=== PATIENT | male | born 1965 | race Caucasian/White ===

== ENCOUNTER 2023-05-29 19:34 | Emergency (ER) | payer OTHER, SELFPAY ==
[2023-05-29 19:37] VITALS: BP 154/81
[2023-05-29 21:42] VITALS: BP 144/78
[2023-05-29 22:00] VITALS: BP 132/74
[2023-05-29 22:13] LABS: Blood Urea Nitrogen 9 mg/dl (9-20); Calcium 9.8 mg/dl (8.4-10.2); Carbon Dioxide 20 mmol/L (22-30); Chloride 96 mmol/L (98-107); Glucose 117 mg/dl (70-99); Magnesium 1.7 mg/dl (1.6-2.3); Sodium 131 mmol/L (135-145); eGFR > 60.00
[2023-05-29 22:19] LABS: Potassium 4.1 mmol/L (3.5-5.1)
[2023-05-29 22:22] LABS: Troponin I < 0.012 ng/ml
[2023-05-29 23:00] VITALS: BP 133/79
--- NOTE | 2023-05-29 23:12 | ED.GENMED ---
History of Present Illness
General
Chief Complaint: Anxiety
Source: spouse
Exam Limitations: none
Time Seen by Provider: 05/29/23 20:43
Nursing documentation reviewed up to this point in time: agreed with
Travel History
Have you had any contact with someone who has COVID-19?: No
Do you have any symptoms of coronavirus? Fever > 100 degrees, chills, cough, shortness of breath, sore throat, loss of taste or smell, muscle aches, or headache?: No
History of Present Illness
History of Present Illness:
This is a 58-year-old gentleman who has a longstanding history of anxiety, started on BuSpar 5 mg twice daily by his PCP March of this year. He also has history of hypertension, chronic insomnia. He had been maintained on nightly doses of Ambien
but more recently, with insurance change his Ambien allowance has been decreased to 15 tablets/month. With chronic difficulty sleeping he was offered a THC gummy by friends and took 1 at nighttime several days ago without ill effects. He took
another 1 just prior to dinner tonight and while eating dinner patient began to feel quite anxious, panicked with what he described as an 'out of body experience'
He has had similar panic attacks in the past but not for quite some time. Patient felt that his blood pressure was elevated, palpitations and overall shakiness.
He denies dizziness but does admit to intermittent lightheadedness.
Since arrival to the ED he is feeling improved but continues with moderate anxiety, fearful that panic will ensue again.
He denies alcohol use nor other drug use.
No leg pain or swelling. No recent travel.
Recent visit with his PCP with recent unremarkable laboratory studies 2 days ago including normal TSH, normal CBC, normal complete metabolic panel, lipid panel with LDL less than 80.
Past History
Past History
ED Past Medical History: HTN and Psychiatric (Anxiety)
ED Past Surgical History: Other (Hernia repair)
Social History
Tobacco: Non-smoker
Alcohol: None
Drug: None
Personal:
Living: with family
Employment: Employed
Family History
Family History: Other (Noncontributory)
Phy Exam
Physical Exam
Physical Exam:
GENERAL: 58-year-old gentleman appears his stated age, awake and alert, mildly anxious but easily communicative. is accompanying.
EYE: anicteric
NECK: Supple, nontender, no meningismus, no significant adenopathy.
ENT: oral mucosa is minimally dry. No rhinorrhea.
CARDIAC: Regular rate and rhythm. no murmur.
LUNGS: Clear breath sounds bilaterally, no acute respiratory distress, no wheezes/rales/rhonchi
ABDOMEN: Soft, nondistended, without focal tenderness, normoactive BS.
NEUROLOGICAL: Alert and oriented x3, no focal neuro deficits.
SKIN: Warm and dry, normal color, skin intact. No rash.
MUSCULOSKELETAL: No C/C/E. peripheral pulses are full and equal b/l. No palpable tenderness.
PSYCH: Anxious. Cooperative.
Course
Orders/Labs/Results
Orders:
Orders
05/29/23 19:41
Electrocardiogram (*1) Urgent
Reason for Study: Shortness of Breath
EKG- Treatment ONCE
05/29/23 21:04
Encourage PO Hydration-Treatme ONCE
05/29/23 21:43
Basic Metabolic Panel Urgent
Magnesium Urgent
Troponin I Urgent
05/29/23 23:11
Acetaminophen [Tylenol] 1,000 mg PO NOW STA
05/29/23 23:20
Alprazolam [Xanax] 0.5 mg PO NOW STA
Abnormal Lab Results
05/29/23
21:43
Sodium 131 L mmol/L
(135-145)
Chloride 96 L mmol/L
(98-107)
Carbon Dioxide 20 L mmol/L
(22-30)
Glucose 117 H mg/dl
(70-99)
05/29/23 21:43
Vital Signs
Initial and Last Documented VS:
Initial Vital Signs
Pulse Resp BP Pulse Ox
103 18 154/81 100
05/29/23 19:37 05/29/23 19:37 05/29/23 19:37 05/29/23 19:37
Last Documented Vital Signs
Pulse Resp BP Pulse Ox
73 18 132/74 95
05/29/23 22:30 05/29/23 19:37 05/29/23 22:00 05/29/23 22:30
MDM/Problems Addressed
Differential Diagnosis Includes:
I highly suspect anxiety/panic, adverse reaction to THC containing edible.
Other consideration is electrolyte abnormality, arrhythmia, less likely ACS.
Initial EKG shows sinus tachycardia, chronically flipped T waves inferiorly compared to previous.
Upon initial evaluation mild sinus tachycardia has resolved. Monitor shows normal sinus rhythm in the 70s.
Initial mild systolic hypertension at 154 has normalized.
Will continue monitoring tech.
Will check electrolytes, troponin.
Normal TSH just 3 days ago, no indication to repeat.
Will encourage oral fluids and continue to observe.
Chronic conditions affecting care: HTN and Psychiatric illness (Generalized anxiety disorder)
Acute Exacerbation and/or Progression of Chronic Illness: Psychiatric illness (Anxiety disorder with panic attack)
*Pulse Oximetry
Patient hypoxic: no
*EKG
Interpreted by ED Provider?: Yes
Comparison EKG: no changes (Unchanged from previous December 2017 )
Rate: tachycardiac
Rhythm: sinus
[place]: normal axis
Interval: normal interval
QRS Pattern: normal QRS
Ischemia: non-specific ST changes
*Meat Department Manager Interpretation
Rate: normal
Interpretation: normal
Rhythm: sinus
*Critical Care Note
Total Time (30-74mins, 75-104mins- exclusive of procedures): Not Applicable
Update Note
Update Note:
05/29/2023 2321 PM
Patient feeling markedly improved, no further tremulousness, no tachycardia. Vital signs are stable and monitoring tech shows normal sinus rhythm in the 60s to 70s.
He complains of mild frontal headache and continues with some worry that panic, anxiety will resume.
Labs show very mild hyponatremia, minimal metabolic acidosis which may be secondary to respiratory alkalosis.
Will give Tylenol for headache and one-time dose of alprazolam and will continue to observe.
Patient has been recommended to avoid any further THC containing products as I suspect this was cause for anxiety and panic.
05/30/2023 0036 AM
Patient resting comfortably, feeling improved and is eager to be discharged to home.
Instructions as above; avoid any and all further THC containing products.
Prompt follow-up with PCP for recheck.
ED Attending Note
-
Portions of this chart may have been created with voice recognition software.� Occasional wrong word or��sound alike� substitutions may have occurred due to the inherent limitations of voice recognition software.
Discharge Plan
Departure
Patient Disposition: Home (Routine Discharge)
Date of Disposition: 05/30/23
Time of Disposition: 00:30
Patient with high blood pressure during this ER visit?: No
Condition: Good
Discharge Problem:
Adverse reaction to THC edible, acute anxiety due to THC consumption
Instructions: Anxiety, Adult (DC), Panic Attack ED
Prescriptions:
No Action
nifedipine 30 MG tablet extended release 24hr
30 mg PO DAILY
lisinopril 20 MG tablet
20 mg PO DAILY
alprazolam 0.25 MG tablet
0.25 mg PO Q8HPRN PRN (Reason: anxiety)
zolpidem 10 MG tablet
10 mg PO HSPRN PRN (Reason: sleep)
hydrocodone-acetaminophen 1 EACH tablet
1 ea PO Q4 PRN (Reason: back pain)
Referrals:
Benja Chanel, DO [Family Provider] - Call in 1-3 days for appt
Activity Restrictions/Additional Instructions:
I suspect your anxiety/panic attack tonight was due to marijuana edible.
As such, recommend you avoid any and all THC containing products.
Continue all of your regular medications and follow-up with your primary care physician for recheck.
Interventions
Interventions:
*Risk Screen - Suicide Last Done: 05/29/23 21:46
*General Assessment Last Done: 05/29/23 19:37
*Neglect/Abuse Screening Last Done: 05/29/23 21:46
ED- Fall Risk Assessment Last Done: 05/29/23 21:46
*ED COVID-19 Vaccine History Last Done: 05/29/23 19:37
ED-Psychological Assessment Last Done: 05/29/23 21:46
Discharge Date and Time
Print Language: SLOVAK
[2023-05-29] MEDS: TYLENOL 1000 MG PO (23:23)
[2023-05-29] MEDS: XANAX 0.5 MG PO (23:23)
[2023-05-30] VITALS: BP 127/78
== END 2023-05-30 00:52 | disposition home or self-care (01) ==
LOC: EMR 19:34
PROVIDERS: EMERGENCY PHYSICIAN Emergency Medicine; FAMILY PHYSICIAN Internal Medicine
DX: F06.4 Anxiety disorder due to known physiological condition (principal); T40.715A Adverse effect of cannabis, initial encounter; F41.0 Panic disorder [episodic paroxysmal anxiety]; G47.9 Sleep disorder, unspecified; I10 Essential (primary) hypertension; F51.04 Psychophysiologic insomnia; E87.1 Hypo-osmolality and hyponatremia; E87.20 Acidosis, unspecified
CPT/HCPCS: 99283; 80048; 83735; 84484; 93005

== ENCOUNTER 2023-08-04 00:18 | Inpatient (IN) | payer BC, SELFPAY ==
[2023-08-03 20:49] VITALS: BP 210/122
[2023-08-03 21:26] VITALS: BP 163/107
[2023-08-03 21:29] LABS: ALT (SGPT) 93 U/L (0-50); AST (SGOT) 93 U/L (17-59); Albumin 4.9 g/dl (3.5-5.0); Alkaline Phosphatase 105 U/L (38-126); Blood Urea Nitrogen 10 mg/dl (9-20); Carbon Dioxide 18 mmol/L (22-30); Chloride 86 mmol/L (98-107); Glucose 114 mg/dl (70-99); Potassium 3.8 mmol/L (3.5-5.1); Sodium 119 mmol/L (135-145); Total Bilirubin 0.9 mg/dl (0.2-1.3); Total Protein 7.5 g/dl (6.3-8.2); eGFR > 60.00
--- NOTE | 2023-08-03 21:32 | ED.GENMED ---
History of Present Illness
General
Chief Complaint: Blood Pressure Problem
Source: patient
Exam Limitations: none
Time Seen by Provider: 08/03/23 21:17
Travel History
Have you had any contact with someone who has COVID-19?: No
Do you have any symptoms of coronavirus? Fever > 100 degrees, chills, cough, shortness of breath, sore throat, loss of taste or smell, muscle aches, or headache?: No
History of Present Illness
History of Present Illness:
This is a 58 year old male that comes in with c/o hypertension. States that his BP was fine the last time he was at the PCP. States that tonight he can tell when his BP is elevated and at 7:30pm it was 200 over something. State that this causes his
anxiety to go up. States that he was told that if his BP ever gets that high to come to the ER.. States that he was slightly SOB and had some diarrhea for the past couple of days. . Denies any fever, chills, chest pain, abd pain, nausea, vomiting,
headache, dizziness, urinary burning.
Past History
Past History
ED Past Medical History: HTN, Psychiatric (Anxiety) and Other (TIA, Headaches, Numbness in arms and legs. Meningitis, )
ED Past Surgical History: Orthopedic (Right finger repair) and Other (Hernia repair X 2, Pituitary resection)
Social History
Tobacco: Non-smoker
Alcohol: Occasional
Drug: None
Personal:
Living: with family
Employment: Employed
Family History
Family History: Other (Noncontributory)
Review of Systems
Review of Systems
All Other Systems: ROS reviewed and negative except as documented in HPI and ROS
Constitutional: Reports no symptoms; Denies fever or chills
EENT: Reports no symptoms
Respiratory: Reports trouble breathing; Denies cough
Cardiac: Reports no symptoms; Denies chest pain
ABD/GI: Reports diarrhea; Denies abdominal pain, nausea or vomiting
: Reports no symptoms; Denies dysuria, frequency or urgency
Musculoskeletal: Reports no symptoms
Skin: Reports no symptoms
Neurological: Reports no symptoms; Denies dizzy or headache
Psychiatric: Reports no symptoms
Phy Exam
General Physical Exam
General Presentation: well appearing
General age: appears stated age
General Skin: warm and dry
General Habitus: normal
General Mental: anxious
General Hydration: appears well hydrated
ENT Exam
ENT Exam: TM's normal, pharynx normal and neck supple
Eye Exam
Eye Exam: EOMI
Cardiovascular Exam
Cardiovascular Exam: regular rate/rhythm, no edema, no murmur and normal peripheral pulses
Pulmonary Exam
Pulmonary Exam: lungs clear, no respiratory distress, no rales, chest non tender, no crackles, no rhonchi, no wheezing and no cough
Gastrointestinal Exam
Gastrointestinal Exam: normal bowel sounds, non tender, soft, no organomegaly, no pulsatile mass and non distended
Musculoskeletal Exam
Musculoskeletal Exam: full ROM and no edema
Skin Exam
Skin Exam: normal color, warm/dry, no rash and no petechia
Psychiatric Exam
Psychiatric Exam: normal mood/affect
Course
Orders/Labs/Results
Orders:
Orders
08/03/23 20:54
EKG [Electrocardiogram (*1)] Urgent
Reason for Study: Shortness of Breath
EKG- Treatment ONCE
08/03/23 21:03
CBC/With Diff [Complete Blood Count/With Diff] Urgent
CMP [Comprehensive Metabolic Panel] Urgent
Troponin I Urgent
08/03/23 21:31
Alprazolam [Xanax] 0.25 mg PO NOW STA
08/03/23 21:35
Osmolality, Random Urine Urgent
Serum Osmolality Urgent
08/03/23 21:38
0.9% Sodium Chloride 1000 ml [Nss] 1,000 ml IV BOLUS
Abnormal Lab Results
08/03/23
21:03
MCH 31.1 H pg
(27.0-31.0)
Absolute Monos (auto) 0.8 H 10^3/uL
(0.1-0.6)
Monocytes % 11.1 H %
(1.7-9.3)
Sodium 119 L* mmol/L
(135-145)
Chloride 86 L mmol/L
(98-107)
Carbon Dioxide 18 L mmol/L
(22-30)
Glucose 114 H mg/dl
(70-99)
AST 93 H U/L
(17-59)
ALT 93 H U/L
(0-50)
08/03/23 21:03
08/03/23 21:03
Hyponatremia. Chloride low, carbon dioxide slightly low. Glucose nonfasting. AST/ALT elevation.
Vital Signs
Initial and Last Documented VS:
Initial Vital Signs
Temp Pulse Resp BP Pulse Ox
98.1 F 126 25 210/122 100
08/03/23 20:49 08/03/23 20:49 08/03/23 20:49 08/03/23 20:49 08/03/23 20:49
Last Documented Vital Signs
Temp Pulse Resp BP Pulse Ox
98.1 F 89 16 158/109 97
08/03/23 20:49 08/03/23 21:45 08/03/23 21:45 08/03/23 21:36 08/03/23 21:45
MDM/Problems Addressed
Differential Diagnosis Includes:
Hypertension, Anxiety, Hyponatremia
MDM/Problems Addressed:
This is a 58 year old male that comes in with c/o hypertension. States that he feels when his BP is elevated and this his anxiety goes up. States that he was told that when his BP goes that high that he needs to come to the ER.
Will check labs and medicate as needed.
Back into see patient. Explained that he would be admitted as his Sodium is very low. Explained that this can happen with to much water intake. Patient states that he has also had diarrhea for a few days. Will admit. Hospitalist notified
Chronic conditions affecting care: HTN
Acute Exacerbation and/or Progression of Chronic Illness: HTN
*Pulse Oximetry
Patient hypoxic: no
*EKG
Interpreted by ED Provider?: Yes
Heart Rate: 109
Rate: tachycardiac
Rhythm: sinus tachycardia
[place]: normal axis
Interval: normal interval
QRS Pattern: normal QRS
Ischemia: non-specific ST changes
*Gunnery/Ordnance Officer Interpretation
Rate: normal
Heart Rate: 82
Rhythm: sinus
*Critical Care Note
Total Time (30-74mins, 75-104mins- exclusive of procedures): Not Applicable
ED Attending Note
-
Portions of this chart may have been created with voice recognition software.� Occasional wrong word or��sound alike� substitutions may have occurred due to the inherent limitations of voice recognition software.
Discharge Plan
Departure
Patient Disposition: Admit
Date of Disposition: 08/03/23
Time of Disposition: 22:08
Admit to: Telemetry
Presentation/result/management discussed w/ accepting MD/DO: Hospitalist
Patient with high blood pressure during this ER visit?: Yes
Condition: Good
Covid-19: Not Applicable
Discharge Problem:
Acute hyponatremia
Prescriptions:
No Action
nifedipine 30 MG tablet extended release 24hr
30 mg PO DAILY
lisinopril 20 MG tablet
20 mg PO DAILY
alprazolam 0.25 MG tablet
0.25 mg PO Q8HPRN PRN (Reason: anxiety)
zolpidem 10 MG tablet
10 mg PO HSPRN PRN (Reason: sleep)
hydrocodone-acetaminophen 1 EACH tablet
1 ea PO Q4 PRN (Reason: back pain)
Referrals:
Benja Chanel, DO [Family Provider] -
Interventions
Interventions:
*Risk Screen - Suicide Last Done: 08/03/23 21:51
*General Assessment Last Done: 08/03/23 21:51
*Neglect/Abuse Screening Last Done: 08/03/23 21:51
ED- Cardiac Assessment Last Done: 08/03/23 21:51
ED- Neurological Assessment Last Done: 08/03/23 21:51
ED- Pulmonary Assessment Last Done: 08/03/23 21:51
Discharge Date and Time
Print Language: MAORI
[2023-08-03 21:36] VITALS: BP 158/109
[2023-08-03 21:36] LABS: Troponin I < 0.012 ng/ml
[2023-08-03 21:38] VITALS: BMI 32.9
[2023-08-03] MEDS: XANAX 0.25 MG PO (21:43)
[2023-08-03] MEDS: NSS 1000 IV (21:43)
[2023-08-03 22:00] VITALS: BP 148/98
[2023-08-03 22:03] LABS: % Basophils 0.6 % (0-2); % Eosinophils 1.3 % (0-6); % Immature Granulocytes 0.4 % (0-0.5); % Lymphocytes 35.3 % (20.5-51.1); % Monocytes 11.1 % (1.7-9.3); % Neutrophils 51.3 % (42.2-75.2); Absolute Eosinophils 0.1 10^3/uL (0-0.7); Absolute Lymphocytes 2.5 10^3/uL (1.2-3.4); Absolute Monocytes 0.8 10^3/uL (0.1-0.6); Absolute Neutrophils 3.7 10^3/uL (1.4-6.5); Hematocrit 42.1 % (39.0-52.0); Hemoglobin 15.2 g/dL (13.0-18.0); Mean Corp Hgb Conc. 36.1 g/dL (33.0-37.0); Mean Corpuscular Hgb 31.1 pg (27.0-31.0); Mean Corpuscular Volume 86.3 fL (80.0-94.0); Nucleated Red Blood Cells % 0 % (-); Platelet Count 195 10^3/uL (130-400); Red Blood Cell Count 4.88 10^6/uL (4.70-6.10); White Blood Cell Count 7.1 10^3/uL (4.8-10.8)
[2023-08-03 22:30] VITALS: BP 147/97
[2023-08-03 22:31] LABS: Osmolality Serum 257 mOsm/kg (275-300)
[2023-08-03 22:33] LABS: Osmolality Urine 91 mOsm/kg (300-900)
[2023-08-04] VITALS (15 sets, daily range): BP systolic 130–154; BP diastolic 84–103; PULSE 61–80; BMI 31.4
--- NOTE | 2023-08-04 00:23 | HPS.HSE ---
Family Physician
-
Family Physician: Benja Chanel
Chief Complaint
-
Dizziness, Fatigue, Headache
History of Present Illness
Patient is a 58y M with PMH significant for pituitary adenoma and hypertension who presents to ED complaining of concerns regarding high blood pressure. Patient states that he has felt 'off' for the past week or so. He reports symptoms
including headache, fatigue, lightheadedness and general 'woozy' sensation. He began to become concerned that his symptoms were due to high blood pressure. He checked his BP today which was 150s systolic - which he notes is elevated from his
usual. he continued to check his BP 'every 30 minutes' throughout the day and it continued to increase up to systolic values in the 200s.
Patient presented to the ED for further evaluation.
Here in the ED his BP has gradually decreased from systolic of 200s to 140s without specific intervention.
Patient reports that he has been having loose stools / diarrhea off-and-on for the past few weeks. This has been fairly consistent for the past 7 days. He notes that his appetite has been poor.
He reports that he drinks about 4-5 liters of water per day - but states that this is his typical intake and has not recently changed.
He had labs done for a physical exam with his PCP in April. He has these on his phone and his Na at that time was 138 (05/27/23).
He denies any recent changes in medications - but notes that he started taking 'liver health pills' including a combination supplement as well as separate N-acetylcysteine.
Patient is admitted an very anxious individual.
He notes prior history of hyponatremia that occurred post-op following his pituitary adenoma surgery. This was in 2004. He has MRI examinations every 2 years in follow-up and his last was in 2022.
Medical History
Past Medical History
Past Medical History: Reports Other
Additional Past Medical History:
Pituitary Adenoma
Hypertension
Anxiety
Obesity
Past Surgical History: Reports Other
Additional Past Surgical History:
Pituitary Adenoma Resection
Hernia Repair x 2
Right Hand Surgery
Social History
Tobacco: Non-smoker
Alcohol: Occasional
Drug: None
Family History
Family History: Hypertension
Allergies / Home Medications
Allergies reflects when Allergies were last updated in [facility].
Home Medications with original date entered in [facility]
Allergy/Medication List:
Allergies
Allergy/AdvReac Type Severity Reaction Status Date / Time
ondansetron Allergy Unknown Verified 08/03/23 20:53
prochlorperazine Allergy Unknown Verified 08/03/23 20:53
NOT.[id number] - Not Allergy Unknown Uncoded 08/03/23 20:53
Converted 42. See Text.
Home Medications
alprazolam 0.25 mg tablet 0.25 mg PO BIDPRN PRN anxiety 01/06/18
lisinopril 20 mg tablet 20 mg PO BID 01/06/18
nifedipine 30 mg tablet,extended release 24 hr 30 mg PO QPM 01/06/18
zolpidem 10 mg tablet 10 mg PO HSPRN PRN sleep 01/06/18
buspirone 5 mg tablet 5 mg PO BID 08/03/23
hydrocodone 5 mg-acetaminophen 325 mg tablet 1 tab PO BIDPRN PRN moderate pain 08/03/23
Review of Systems
-
History Source: Patient
A 12 point ROS was completed and negative except as noted: Yes
Constitutional: Reports Fatigue; Denies Fever or Chills
EENT: Denies Sore Throat
Respiratory: Denies Cough or Trouble Breathing
Cardiac: Denies Chest Pain or Palpitations
Abdomen/GI: Reports Diarrhea and Anorexia; Denies Abdominal Pain, Nausea, Vomiting, Bloody Stools or Black Stools
: Reports Frequency; Denies Dysuria
Musculoskeletal: Denies Joint Pain or Edema
Neurological: Reports Dizzy and Headache
Psych: Reports Anxiety; Denies Depression
Physical Exam
Vital Signs
Vital Signs
Temp Pulse Resp BP Pulse Ox
98.1 F 80 13 147/97 96
08/03/23 20:49 08/03/23 22:45 08/03/23 22:45 08/03/23 22:30 08/03/23 22:45
Physical Exam
General: Other (58y M in no acute distress. Anxious affect.)
HEENT: Moist mucous membranes and PERRLA
Respiratory: Clear; No Wheezes, Rales or Rhonchi
Cardiac: S1/S2, Regular Rhythm and Murmur (II/ REG)
GI: Soft, Non Tender, Non Distended and Normal Bowel Sounds
Musculoskeletal: No Clubbing, No Cyanosis and No Edema
Neuro: AO x 3 and Nonfocal/grossly intact
Psych: Anxious
Laboratory Results
-
08/03/23 21:03
08/03/23 21:03
Laboratory Results
Total Bilirubin 0.9 mg/dl (0.2-1.3) 08/03/23 21:03
AST 93 U/L (17-59) H 08/03/23 21:03
ALT 93 U/L (0-50) H 08/03/23 21:03
Alkaline Phosphatase 105 U/L (38-126) 08/03/23 21:03
Troponin I < 0.012 ng/ml 08/03/23 21:03
Impression/Plan
-
A/P: Patient is a 58y M with PMH significant for hypertension, anxiety and pituitary adenoma s/p resection who presents to ED concerned about his BP.
Symptomatic Hyponatremia
- Admit for further evaluation and treatment.
- Patient presents with Na level = 119 and suspect that this is the etiology of his vague symptomatology.
- Suspect that this is due to free water intake, poor appetite and recent GI losses / diarrhea.
- 3% saline overnight to get Na level > 120.
- Fluid restriction.
- Follow for improvement in Na levels.
- Nephrology evaluation for additional recommendations.
- Check TFTs, cortisol and MR brain given his history of pituitary adenoma (patient notes that resection was incomplete).
- Follow for any new / worsening symptoms.
Benign Hypertension
- BP elevation was very likely secondary to anxiety brought on by his symptoms due to the above.
- BP improved without intervention and patient admittedly quite anxious.
- Continue usual home BP meds for now and follow for changes.
- Correct Na issues. Treat anxiety as noted below.
Generalized Anxiety
- Sounds as if this is chronically poorly controlled.
- Patient takes buspirone and PRN alprazolam.
- States that he will require Ativan for MRI and this was ordered.
- Continue PRN meds for now. Would consider trial of Lexapro , Zoloft or similar - after Na issues are resolved.
DVT Prophylaxis: SCDs
Code Status: Full
[2023-08-04] MEDS: SODIUM CHLORIDE 3% 250 IV (01:06)
[2023-08-04] MEDS: TYLENOL 650 MG PO (02:48)
[2023-08-04] MEDS: XANAX 0.25 MG PO (03:25)
[2023-08-04 03:59] LABS: Hematocrit 40.4 % (39.0-52.0); Mean Corp Hgb Conc. 37.1 g/dL (33.0-37.0); Mean Corpuscular Hgb 31.2 pg (27.0-31.0); Platelet Count 203 10^3/uL (130-400); Red Blood Cell Count 4.81 10^6/uL (4.70-6.10); Red Cell Dist. Width 12.1 % (11.5-14.5)
--- NOTE | 2023-08-04 04:02 | PTCARENOTE ---
Received pt from ED RN. Pt is AAOx3, neuro checks Q4, anxious (PRN Xanax given, see MAR). NSR w/ 1st degree, orthos ordered BID. Pt on RA O2 sat 93%, lungs clear. BRPx1. Tylenol given for a LY (see MAR). Pt is laying in bed with call mejia in reach.
[2023-08-04 04:18] LABS: Blood Urea Nitrogen 10 mg/dl (9-20); Calcium 9.8 mg/dl (8.4-10.2); Carbon Dioxide 22 mmol/L (22-30); Chloride 98 mmol/L (98-107); Estimated Creatinine Clearance 118 ml/min; Glucose 91 mg/dl (70-99); Potassium 4.8 mmol/L (3.5-5.1); Sodium 131 mmol/L (135-145); eGFR > 60.00
[2023-08-04 04:44] LABS: TSH Reflex To Free T4 2.08 uIU/ml (0.47-4.68)
[2023-08-04 04:45] LABS: Cortisol, Random 9.5 ug/dl
--- NOTE | 2023-08-04 06:19 | PTCARENOTE ---
Pt Na on admission was 119, he was placed on a 3% saline gtt in the ED. AM Na was 131, AMAURI Saldivar notified and instructed to hold 3%. Dr. Avery notified.
[2023-08-04] MEDS: D5W 1000 IV ×2 (08:15→19:53)
[2023-08-04] MEDS: BUSPAR 5 MG PO ×2 (08:18→19:53)
[2023-08-04] MEDS: ZESTRIL 20 MG PO ×2 (08:18→19:53)
--- NOTE | 2023-08-04 08:18 | W.PN.HOSP.TC ---
Today's Communication/Plan
-
Repeat BMP
hepatitis panel and USS
Await MRI
FR
Assessment / Plan
Assessment / Plan
58-year-old male with dizziness, fatigue and headache. Patient checked his blood pressure at home was elevated. In the ER his blood pressure gradually dropped without intervention.. Patient also reported that he was drinking 4 to 5 L of water a
day. Reportedly sodium was 138 on may 27 2023.He notes prior history of hyponatremia that occurred post-op following his pituitary adenoma surgery. This was in 2004. He has MRI examinations every 2 years in follow-up and his last was in 2022.
He also admitted to having lower/diarrhea off-and-on for the past few weeks.
CVS: S1-S2 normal
Chest: CTA B/L
Abdomen: Soft, NT / Bowel sounds present
Extremities: No edema, normal pulses
SIDE PULLER: Non focal exam
# Symptomatic hyponatremia
Sodium was 119 on admission. Serum osmolality 257
Likely secondary to excess free water intake and GI losses, also SIADH physiology
Received 3% saline after which her sodium corrected quickly. D5W started
Fluid restriction
Nephrology evaluation
Check TSH, cortisol- OK
MRI of the brain with and without contrast with a history of pituitary adenoma
#Loose stools- says after he ate out?
If has more send testing.
# Metabolic acidosis-resolved
# Elevated AST and ALT
Check Hepatitis panel
Check USS
# Hypertension
Continue lisinopril 10 mg p.o. twice daily, nifedipine 30 mg at night
Likely urgency in the ER secondary to his extreme anxiety
# Generalized anxiety disorder
Continue Xanax twice daily as needed, BuSpar 5 twice daily
# Obesity per BMI criteria
# Insomnia-on Ambien 10 mg at bedtime
# History of pituitary adenoma resection patient gets periodic imaging
Last one at [place] - was OK per pt in December.
# DVT prophylaxis-Lovenox
# Full code
D/ W RN
D/W Nephrology
EKG and Images reviewed by me
Time spent 52 min
Anticipated Discharge: Within 24 hours
Subjective/Interval History
-
Date of Service: August 04, 2023
Objective Data
-
Labs:
Laboratory Results
08/03/23 08/04/23 08/04/23
21:03 03:30 10:00
WBC 7.1 6.0
Hgb 15.2 15.0
Hct 42.1 40.4
Plt Count 195 203
Sodium 119 L* 131 L D Pending
Potassium 3.8 4.8 D Pending
Chloride 86 L 98 Pending
Carbon Dioxide 18 L 22 Pending
BUN 10 10 Pending
Creatinine 0.9 0.8 Pending
Glucose 114 H 91 Pending
Calcium 10.0 9.8 Pending
Total Bilirubin 0.9
AST 93 H
ALT 93 H
Alkaline Phosphatase 105
Vital Signs:
Vital Signs
Temp Pulse Resp BP Pulse Ox
98.5 F 59 22 139/93 95
08/04/23 02:34 08/04/23 06:00 08/04/23 06:00 08/04/23 06:00 08/04/23 06:00
I&O
08/03/23 08/04/23 08/05/23
06:59 06:59 06:59
Intake Total 410 / 410
Balance 410 / 410
[2023-08-04] MEDS: ATIVAN 0.5 MG PO (09:02)
--- NOTE | 2023-08-04 09:20 | PTCARENOTE ---
Pt AAOx3 very anxious as pt daughter graduates from high school on Wednesday. pt wants to go home. Pt for nephrology consult and MRI
[2023-08-04] MEDS: ATIVAN 0.5 MG IV (09:30)
--- NOTE | 2023-08-04 09:37 | PTCARENOTE ---
Pt pre medicated with 0.5 po Ativan and 0.5 IV Ativan for MRI , Transport here to transport to MRI
[2023-08-04 11:50] LABS: ALT (SGPT) 102 U/L (0-50); AST (SGOT) 87 U/L (17-59); Albumin 4.8 g/dl (3.5-5.0); Alkaline Phosphatase 81 U/L (38-126); Direct Bilirubin 0.5 mg/dl (0.0-0.4); Total Protein 7.4 g/dl (6.3-8.2)
--- NOTE | 2023-08-04 11:54 | PTCARENOTE ---
Pt back from MRI awaiting lab results and DR Gonzalez
[2023-08-04] MEDS: ATIVAN IV (11:58)
[2023-08-04] MEDS: NSS (PRESERVATIVE FREE) 0.25 ML IV (11:59)
[2023-08-04] MEDS: FLUSH (NSS) 1 FLUSH IV (11:59)
[2023-08-04 13:00] LABS: Blood Urea Nitrogen 11 mg/dl (9-20); Calcium 9.8 mg/dl (8.4-10.2); Carbon Dioxide 23 mmol/L (22-30); Chloride 97 mmol/L (98-107); Estimated Creatinine Clearance 118 ml/min; Glucose 98 mg/dl (70-99); Potassium 4.5 mmol/L (3.5-5.1); Sodium 131 mmol/L (135-145); eGFR > 60.00
--- NOTE | 2023-08-04 15:02 | W.CON.NEPH ---
Consultation
-
Date/Time Consultation Requested: August 04, 2023 9 AM
Date/Time Consultation Performed: August 04, 2023 12 PM
Requesting Provider: Dr. Valerio
Performing Provider: Dr. Lawler
Reason for Consultation: Hyponatremia
Medical History
-
Chief Complaint: Lightheadedness
History of Present Illness:
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 He also has hypertension on a multidrug regimen which has been well-controlled by his report running in the 130 systolic
range typically. He says that he does drink a lot of fluid per day at least 4 L sometimes more. In the last week he has been drinking more fluid as he has been more active and has been quite hot. He says that he went on a hike with his son and
help this to moving to college and then also went on a 13 mile bike ride in the last several days. With this he has been taking in at least 5 L of fluid per day. He says that he has also been preparing for a graduation alliance party this Wednesday for 40
people and the stress has likely resulted in him eating less over the last week as well. Beginning since Wednesday at least, he has been having some wooziness and lightheadedness. He felt that this was due to his blood pressures which seem to been
higher than usual though he attributed this to stress. The feeling however did not improve which is why he came to the emergency room. At the time of admission he was noted to have a sodium level of 119.
Past Medical History
Pituitary adenoma
Hypertension
Anxiety
Hernia repair
Right hand surgery
Partial pituitary adenoma resection
Social History
Tobacco: Non-Smoker
Alcohol: Occasional
Family History
Family History: Not Pertinent
Allergies / Home Medications
Allergy/AdvReac Type Severity Reaction Status Date / Time
ondansetron Allergy Unknown Verified 08/03/23 20:53
prochlorperazine Allergy Unknown Verified 08/03/23 20:53
�Medication �Instructions �Recorded �Confirmed �Type
alprazolam 0.25 mg tablet 0.25 mg PO BIDPRN PRN anxiety 01/06/18 08/03/23 History
lisinopril 20 mg tablet 20 mg PO BID 01/06/18 08/03/23 History
nifedipine 30 mg tablet,extended 30 mg PO QPM 01/06/18 08/03/23 History
release 24 hr
zolpidem 10 mg tablet 10 mg PO HSPRN PRN sleep 01/06/18 08/03/23 History
buspirone 5 mg tablet 5 mg PO BID 08/03/23 08/03/23 History
hydrocodone 5 mg-acetaminophen 325 1 tab PO BIDPRN PRN moderate pain 08/03/23 08/03/23 History
mg tablet
Review of Systems
-
No chest pain or shortness of breath. Lightheadedness has improved. No issues with urine output.
All other systems: Negative unless noted
Physical Exam
Vital Signs
Vital Signs
Temp Pulse Resp BP Pulse Ox
98.3 F 75 14 140/113 91
08/04/23 11:55 08/04/23 08:18 08/04/23 08:17 08/04/23 08:18 08/04/23 08:17
Lab Results
WBC 6.0 10^3/uL (4.8-10.8) 08/04/23 03:30
RBC 4.81 10^6/uL (4.70-6.10) 08/04/23 03:30
Hgb 15.0 g/dL (13.0-18.0) 08/04/23 03:30
Hct 40.4 % (39.0-52.0) 08/04/23 03:30
Plt Count 203 10^3/uL (130-400) 08/04/23 03:30
Sodium 131 mmol/L (135-145) L 08/04/23 11:55
Potassium 4.5 mmol/L (3.5-5.1) 08/04/23 11:55
Chloride 97 mmol/L (98-107) L 08/04/23 11:55
Carbon Dioxide 23 mmol/L (22-30) 08/04/23 11:55
BUN 11 mg/dl (9-20) 08/04/23 11:55
Creatinine 0.8 mg/dL (0.7-1.3) 08/04/23 11:
eGFR > 60.00 08/04/23 11:55
Glucose 98 mg/dl (70-99) 08/04/23 11:
Calcium 9.8 mg/dl (8.4-10.2) 08/04/23 11:
Albumin 4.8 g/dl (3.5-5.0) 08/04/23 03:30
Physical Exam
Patient is awake alert oriented and in no distress. Mood and affect were pleasant, insight and judgment were good. Pupils are equal round and reactive to light, extraocular movements are intact, sclera were anicteric. Hearing was normal, ears and
nose are intact. Oropharynx was clear. Neck was supple with trachea midline and no thyromegaly. Heart was regular rate and rhythm without rubs. Lower extremities without edema. Lungs were clear to auscultation bilaterally and with normal
excursion. Abdomen was soft, nontender, with normal active bowel sounds, and no hepatosplenomegaly. Skin was without rash and with normal turgor.
Data Reviewed
-
MRI: Report Reviewed by me (Brain MRI on August 04, 2023 shows deformity of the pituitary gland and infundibulum)
Medical Tests (Nuc Med, Echo etc): Image Personally Visualized and interpreted (EKG on August 04, 2023 by my reading shows normal sinus rhythm first-degree AV block)
Labs: Labs Reviewed by me (Hemoglobin 15.0, platelets 203, WBC 6.0, sodium 119, potassium 3.8, creatinine 0.9, AST 87, ALT 102)
Old Records: Reviewed (Sodium level on May 27, 2023 was 138)
Assessment/Plan
-
Assessment:
Hyponatremia, symptomatic
Hypertension
Pituitary adenoma, partial resection
Elevated LFTs
Plan:
Follow serial BMP
Follow LFTs
Continue D5W IV fluids for now
Urine osmolality of 91 suggests that this was a polyuric combined with low solute state. He will likely correct by himself.
We will continue IV fluids for the time being pending later sodium levels today.
So long as his sodium level is above 132, he could be discharged tomorrow with expected repeat blood work on Wednesday next week.
--- NOTE | 2023-08-04 15:38 | PTCARENOTE ---
Pt was ordered abd us which he refused due to having one in April pt states he has a fatty liver. Dr Bravo aware
--- NOTE | 2023-08-04 16:18 | CM ---
Patient with Dx Symptomatic hyponatremia.
Spoke with patient who resides with his in a 2 story house.
The patient has been independent in ADLs and ambulation.
The patient has no DME or prior VN.
PCP - Benja Chanel
[facility]armacy - [facility]
No CM d/c needs identified.
Plan home.
[2023-08-04 17:30] LABS: Blood Urea Nitrogen 13 mg/dl (9-20); Calcium 9.8 mg/dl (8.4-10.2); Carbon Dioxide 24 mmol/L (22-30); Chloride 96 mmol/L (98-107); Estimated Creatinine Clearance 105 ml/min; Glucose 103 mg/dl (70-99); Potassium 4.4 mmol/L (3.5-5.1); Sodium 130 mmol/L (135-145); eGFR > 60.00
[2023-08-04] MEDS: PROCARDIA XL (EXTENDED RELEASE) 30 MG PO (17:32)
[2023-08-04 21:24] LABS: Blood Urea Nitrogen 15 mg/dl (9-20); Calcium 10.1 mg/dl (8.4-10.2); Carbon Dioxide 23 mmol/L (22-30); Chloride 98 mmol/L (98-107); Estimated Creatinine Clearance 118 ml/min; Glucose 108 mg/dl (70-99); Potassium 4.2 mmol/L (3.5-5.1); Sodium 131 mmol/L (135-145); eGFR > 60.00
[2023-08-04] MEDS: AMBIEN 10 MG PO (22:16)
--- NOTE | 2023-08-05 04:49 | PTCARENOTE ---
Pt anxious at times, states he is very eager to get home, but seems compliant and willing to wait for MD authorization. Stated several times that he has family coming today and hopes he will be there to greet them. Q4H neuro checks maintained with
no abnormalities noted. Pt denies complaints at this time. Requested sleep aid for difficulty sleeping in new places, ambien given per APR.
[2023-08-05 05:12] VITALS: BP 136/93
[2023-08-05 06:11] LABS: ALT (SGPT) 107 U/L (0-50); AST (SGOT) 88 U/L (17-59); Albumin 4.2 g/dl (3.5-5.0); Alkaline Phosphatase 79 U/L (38-126); Blood Urea Nitrogen 14 mg/dl (9-20); Calcium 9.9 mg/dl (8.4-10.2); Carbon Dioxide 24 mmol/L (22-30); Chloride 101 mmol/L (98-107); Direct Bilirubin 0.5 mg/dl (0.0-0.4); Estimated Creatinine Clearance 95 ml/min; Glucose 99 mg/dl (70-99); Magnesium 2.4 mg/dl (1.6-2.3); Potassium 4.3 mmol/L (3.5-5.1); Sodium 134 mmol/L (135-145); Total Bilirubin 0.9 mg/dl (0.2-1.3); Total Protein 6.7 g/dl (6.3-8.2); eGFR > 60.00
[2023-08-05 07:54] VITALS: BP 145/94
[2023-08-05] MEDS: BUSPAR 5 MG PO (08:06)
[2023-08-05] MEDS: ZESTRIL 20 MG PO (08:07)
[2023-08-05] MEDS: XANAX 0.25 MG PO (08:10)
--- NOTE | 2023-08-05 08:45 | PTCARENOTE ---
Patient feels good today. Offers no complaints. Hoping to be discharged to home today. Sodium level today 134. Vital signs stable.
--- NOTE | 2023-08-05 09:45 | W.PN.NEPH.PH ---
Today's Communication / Plan
-
FR
Assessment/Plan
-
Assessment:
Hyponatremia, symptomatic
Hypertension
Pituitary adenoma, partial resection
Elevated LFTs
Plan:
follow BMP in 2 weeks
will need OP GI eval for elevated LFTs
hyponatremia should resolve at this point
counselled on balancing fluid intake and eating
-
-
Date of Service: August 05, 2023
CC / HPI / ROS
-
Chief Complaint:
hyponatremia
History of Present Illness:
Na up to 134
off D5W
LFTs remain elevated but stable
BP stable
Review of Systems:
no CP/SOB
Labs
-
Labs:
WBC 6.0 10^3/uL (4.8-10.8) 08/04/23 03:30
RBC 4.81 10^6/uL (4.70-6.10) 08/04/23 03:30
Hgb 15.0 g/dL (13.0-18.0) 08/04/23 03:30
Hct 40.4 % (39.0-52.0) 08/04/23 03:30
Plt Count 203 10^3/uL (130-400) 08/04/23 03:30
Sodium 134 mmol/L (135-145) L 08/05/23 05:11
Potassium 4.3 mmol/L (3.5-5.1) 08/05/23 05:11
Chloride 101 mmol/L (98-107) 08/05/23 05:11
Carbon Dioxide 24 mmol/L (22-30) 08/05/23 05:11
BUN 14 mg/dl (9-20) 08/05/23 05:11
Creatinine 1.0 mg/dL (0.7-1.3) 08/05/23 05:11
eGFR > 60.00 08/05/23 05:11
Glucose 99 mg/dl (70-99) 08/05/23 05:11
Calcium 9.9 mg/dl (8.4-10.2) 08/05/23 05:11
Albumin 4.2 g/dl (3.5-5.0) 08/05/23 05:11
Physical Exam
-
Vital Signs:
Vital Signs
Temp Pulse Resp BP Pulse Ox
98.0 F 65 18 145/94 98
08/05/23 07:49 08/05/23 08:00 08/05/23 08:00 08/05/23 07:54 08/04/23 21:46
Cardiovascular:: Regular rate and rhythm
Respiratory:: Bilateral: CTA
Lung Excursion:: Normal
Abdomen:: Nontender and Soft
Bowel Sounds:: Normal
Extremity Edema:: None: Bilateral:
[2023-08-05 10:55] VITALS: BP 150/95
[2023-08-05 13:08] VITALS: BP 142/120
--- NOTE | 2023-08-05 13:28 | W.PN.HOSP.TC ---
Today's Communication/Plan
-
Discharge
Assessment / Plan
Assessment / Plan
58-year-old male with dizziness, fatigue and headache. Patient checked his blood pressure at home was elevated. In the ER his blood pressure gradually dropped without intervention.. Patient also reported that he was drinking 4 to 5 L of water a
day. Reportedly sodium was 138 on may 27 2023.He notes prior history of hyponatremia that occurred post-op following his pituitary adenoma surgery. This was in 2004. He has MRI examinations every 2 years in follow-up and his last was in 2022.
He also admitted to having lower/diarrhea off-and-on for the past few weeks.
[facility]: S1-S2 normal
Chest: CTA B/L
Abdomen: Soft, NT / Bowel sounds present
Extremities: No edema, normal pulses
[employer]: Non focal exam
# Symptomatic hyponatremia
Sodium was 119 on admission. Serum osmolality 257
Likely secondary to excess free water intake and GI losses, also SIADH physiology
Received 3% saline after which her sodium corrected quickly. D5W started
Fluid restriction
Nephrology evaluation
Check TSH, cortisol- OK
MRI of the brain with and without contrast with a history of pituitary adenoma
#Loose stools- says after he ate out?
If has more send testing.
# Metabolic acidosis-resolved
# Elevated AST and ALT
Hepatitis panel pending
Patient admits to drinking a lot of alcohol over weekend likely cause for elevated LFTs now.
May 26 he had normal AST and ALT
He had fatty liver all his life starting age 25 when he had a liver biopsy which came out okay per patient.
He follows up with Dr. Carlisle normally. Saw recently.
I reviewed the ultrasound report of his liver from May 27 on his phone shows cholelithiasis and fatty liver.
Patient is aware that he needs repeat LFTs and follow-up with GI.
Advised him not to drink until the next blood work
# Hypertension
Continue lisinopril 10 mg p.o. twice daily, nifedipine 30 mg at night
Likely urgency in the ER secondary to his extreme anxiety
# Generalized anxiety disorder
Continue Xanax twice daily as needed, BuSpar 5 twice daily
# Obesity per BMI criteria
# Insomnia-on Ambien 10 mg at bedtime
# History of pituitary adenoma resection patient gets periodic imaging
Last one at [facility] - was OK per pt in December.
# DVT prophylaxis-Lovenox
# Full code
D/ W RN
D/W Nephrology
OP records reviewed.
Fluid restriction reviewed
Prescription for blood work given
Time spent 38 min for discharge
Anticipated Discharge: Today
Subjective/Interval History
-
Date of Service: August 05, 2023
Objective Data
-
Labs:
Laboratory Results
08/05/23
05:11
Sodium 134 L
Potassium 4.3
Chloride 101
Carbon Dioxide 24
BUN 14
Creatinine 1.0
Glucose 99
Calcium 9.9
Total Bilirubin 0.9
AST 88 H
ALT 107 H
Alkaline Phosphatase 79
Vital Signs:
Vital Signs
Temp Pulse Resp BP Pulse Ox
98.3 F 55 15 150/95 98
08/05/23 11:22 08/05/23 10:55 08/05/23 10:55 08/05/23 10:55 08/05/23 11:39
I&O
08/04/23 08/05/23 08/06/23
06:59 06:59 06:59
Intake Total 410 / 410 1720 / 1720 240 / 240
Balance 410 / 410 1720 / 1720 240 / 240
--- NOTE | 2023-08-05 13:35 | W.DS.TRANS ---
Addendum entered and electronically signed by Yi Dhillon MD 08/05/23 14:50:
Dictation- [id number]
Original Note:
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
-
Discharge Instructions:
Discharge Diagnosis/Procedures Hyponatremia, hypertension, elevated AST and ALT
, insomnia, history of pituitary adenoma
Diet 2 Gram Sodium,Restrict fluids to 48 oz
Activity As tolerated
Driving Restrictions As prior to admission
Blood Work BMP in 2 weeks
Instructions:
Stand-Alone Forms:
Changes to Home Medications: No
Discharge Medications:
DC Medications w/original date entered in [employer]
alprazolam 0.25 mg tablet 0.25 mg PO BIDPRN PRN anxiety 01/06/18
lisinopril 20 mg tablet 20 mg PO BID Blood Pressure 01/06/18
nifedipine 30 mg tablet,extended release 24 hr 30 mg PO QPM Blood Pressure 01/06/18
zolpidem 10 mg tablet 10 mg PO HSPRN PRN sleep 01/06/18
buspirone 5 mg tablet 5 mg PO BID Mental Health/Anxiety 08/03/23
hydrocodone 5 mg-acetaminophen 325 mg tablet 1 tab PO BIDPRN PRN moderate pain 08/03/23
Home Medication Changes
Pending Results: Yes
Additional Pending Results:
Hepatitis panel
[2023-08-05 13:50] VITALS: BP 160/108
[2023-08-05 14:42] VITALS: BP 162/98
--- NOTE | 2023-08-05 15:08 | CM ---
Patient with Dx Symptomatic hyponatremia.
Met with patient who was preparing for d/c. The patient says he feels ready to go home today. His will provide transport home.
No CM d/c needs identified.
Plan home today.
[2023-08-06 09:01] LABS: Hepatitis B Surface Antigen Negative (Negative)
[2023-08-06 09:19] LABS: Hepatitis B Surface Antibody Negative; Hepatitis C Antibody Negative (Negative)
[2023-08-06 10:00] LABS: Hepatitis A Antibody, Total Negative (Negative)
== END 2023-08-05 17:09 | disposition home or self-care (01) | DRG 641 ==
LOC: IMU 00:18
PROVIDERS: Clinical Nurse Specialist Family Health; ADMITTING PHYSICIAN Hospitalist; ATTENDING PHYSICIAN Hospitalist; EMERGENCY PHYSICIAN Emergency Medicine; FAMILY PHYSICIAN Internal Medicine; OTHER PHYSICIAN Specialist
DX: E87.1 Hypo-osmolality and hyponatremia (principal); I10 Essential (primary) hypertension; E87.20 Acidosis, unspecified; E66.9 Obesity, unspecified; G47.00 Insomnia, unspecified; F41.1 Generalized anxiety disorder; D35.2 Benign neoplasm of pituitary gland; K80.20 Calculus of gallbladder without cholecystitis without obstruction; K76.0 Fatty (change of) liver, not elsewhere classified; Z68.31 Body mass index [BMI] 31.0-31.9, adult
CPT/HCPCS: 70553; 80048; 80053; 80076; 82248; 82533; 83735; 83930; 83935; 84443; 84484; 85025; 85027; 86706; 86708; 86709; 86803; 87340; 93005; 99285; A9575

== ENCOUNTER 2023-08-21 08:17 | Emergency (ER) | payer BC, SELFPAY ==
--- NOTE | 2023-08-21 08:27 | ED.GENMED ---
History of Present Illness
General
Chief Complaint: Allergic Reaction
Source: patient
Exam Limitations: none
Time Seen by Provider: 08/21/23 08:23
Nursing documentation reviewed up to this point in time: agreed with
History of Present Illness
History of Present Illness:
Patient with history of severe allergic reaction to bee sting in the past, presents to ED after being stung by a bee on the corner of his left eye, shortly prior to arrival. Patient immediately took Benadryl 1 tablet [id number], as well as
administering EpiPen on his right thigh, prior to arrival. Denies headache. Denies dizziness. Denies shortness of breath. Denies chest pain. Denies chest palpitations. Denies nausea or vomiting. Denies blurred vision. Denies difficulty with
speech. Denies difficulty with swallowing. Denies throat swelling sensation.
Past History
Past History
ED Past Medical History: HTN, Psychiatric (Anxiety) and Other (TIA, Headaches, Numbness in arms and legs. Meningitis, )
ED Past Surgical History: Orthopedic (Right finger repair) and Other (Hernia repair X 2, Pituitary resection)
Social History
Tobacco: Non-smoker
Alcohol: Occasional
Drug: None
Personal:
Living: with family
Employment: Employed
Family History
Family History: Other (Noncontributory)
Review of Systems
Review of Systems
Allergies reviewed?: Yes
All Other Systems: ROS reviewed and negative except as documented in HPI and ROS
Constitutional: Reports no symptoms
EENT: Reports no symptoms; Denies sore throat
Respiratory: Reports no symptoms; Denies trouble breathing
Cardiac: Reports no symptoms; Denies chest pain or palpitations
ABD/GI: Reports no symptoms; Denies nausea
Musculoskeletal: Reports no symptoms
Skin: Reports other (Left eye swelling)
Neurological: Reports no symptoms; Denies dizzy or headache
Phy Exam
Physical Exam
Physical Exam:
Physical Exam
General: mild distress, not acutely ill. afebrile
Head: nc/at. eomi. mild left periorbital soft tissue swelling, with single, punctured william noted over left lateral upper eyelid.
Neck: supple. normal range of motion. normal pharynx. normal uvula.
Heart: tachycardic, no murmur. equal radial pulses.
Lungs: no acute respiratory distress. clear bilaterally
Abdomen: normal bowel sounds. not tender.
Neuro: alert and oriented. no focal neurological deficits
Skin: no rash
Psychiatric: well kept. interactive and cooperative
Extremities: no edema. no calf tenderness.
Course
Orders/Labs/Results
Orders:
Orders
08/21/23 08:26
0.9% Sodium Chloride 500 ml [Nss] 500 ml IV BOLUS
Dexamethasone Sod Phosphate [Decadron] 10 mg IV NOW STA
Diphenhydramine [Benadryl] 25 mg IV NOW STA
Famotidine [Pepcid] 20 mg IV NOW STA
Vital Signs
Initial and Last Documented VS:
Initial Vital Signs
Pulse Resp Pulse Ox
126 20 98
08/21/23 08:18 08/21/23 08:18 08/21/23 08:18
Last Documented Vital Signs
Pulse Resp BP Pulse Ox
56 18 148/101 96
08/21/23 11:30 08/21/23 11:30 08/21/23 11:00 08/21/23 11:30
MDM/Problems Addressed
MDM/Problems Addressed:
Patient without any significant symptoms during observation ED. Patient with continual mild left periorbital swelling with painful sensation, due to puncture from bee sting site. Eyelid without any evidence of retained foreign body, i.e. bee
stinger. Patient will be discharged home in stable condition at this time, with the following prescription: EpiPen, 1 dose of prednisone, to be used tomorrow if swelling continues.
*Critical Care Note
Total Time (30-74mins, 75-104mins- exclusive of procedures): Not Applicable
ED Attending Note
-
Portions of this chart may have been created with voice recognition software.� Occasional wrong word or��sound alike� substitutions may have occurred due to the inherent limitations of voice recognition software.
Discharge Plan
Departure
Patient Disposition: Home (Routine Discharge)
Date of Disposition: 08/21/23
Time of Disposition: 11:10
Patient with high blood pressure during this ER visit?: Yes
Condition: Good
Discharge Problem:
Bee sting
Instructions: Insect Bites and Stings ED
Prescriptions:
New
epinephrine [EpiPen 2-Howard] 0.3 mg/0.3 mL auto-injector
0.3 mg IM ONCE Qty: 2 0RF
prednisone 50 mg tablet
50 mg PO DAILY Qty: 1 0RF
No Action
nifedipine 30 MG tablet extended release 24hr
30 mg PO QPM
lisinopril 20 MG tablet
20 mg PO BID
alprazolam 0.25 MG tablet
0.25 mg PO BIDPRN PRN (Reason: anxiety)
Patient Comments:
08/03/2023: last filled 07/25/23, 20 tabs for 10 days from [facility]
zolpidem 10 MG tablet
10 mg PO HSPRN PRN (Reason: sleep)
Patient Comments:
08/03/2023: last filled 07/23/23, 15 tabs for 15 days from [facility]
buspirone 5 mg tablet
5 mg PO BID
hydrocodone-acetaminophen 5-325 mg tablet
1 tab PO BIDPRN PRN (Reason: moderate pain)
Patient Comments:
08/03/2023: last filled 06/30/23, 60 tabs for 30 days from [facility]
Referrals:
Benja Chanel, [Family Provider] -
Activity Restrictions/Additional Instructions:
As discussed, please follow-up with your primary care physician with any further concerns. Your prescriptions have been sent electronically to [facility] pharmacy in [place].
Interventions
Interventions:
*Risk Screen - Suicide Last Done: 08/21/23 08:38
*General Assessment Last Done: 08/21/23 08:38
*Neglect/Abuse Screening Last Done: 08/21/23 08:38
ED- Fall Risk Assessment Last Done: 08/21/23 08:38
*ED COVID-19 Vaccine History Last Done: 08/21/23 08:38
*Nursing Disposition Last Done: 08/21/23 12:00
ED- Cardiac Assessment Last Done: 08/21/23 08:38
ED- Pulmonary Assessment Last Done: 08/21/23 08:38
ED-Skin Assessment Last Done: 08/21/23 08:38
Discharge Date and Time
Discharge Date/Time: 08/21/23 12:33
Print Language: LATVIAN
[2023-08-21] MEDS: BENADRYL 25 MG IV (08:32)
[2023-08-21] MEDS: NSS 500 IV (08:33)
[2023-08-21] MEDS: PEPCID 20 MG IV (08:33)
[2023-08-21] MEDS: DECADRON 10 MG IV (08:33)
[2023-08-21 08:38] VITALS: BMI 33.2
[2023-08-21 09:00] VITALS: BP 176/108
[2023-08-21 10:00] VITALS: BP 149/101
[2023-08-21 11:00] VITALS: BP 148/101
== END 2023-08-21 12:33 | disposition home or self-care (01) ==
LOC: EMR 08:17
PROVIDERS: EMERGENCY PHYSICIAN Emergency Medicine; FAMILY PHYSICIAN Internal Medicine
DX: T63.441A Toxic effect of venom of bees, accidental (unintentional), initial encounter (principal); S01.132A Puncture wound without foreign body of left eyelid and periocular area, initial encounter; R22.0 Localized swelling, mass and lump, head; I10 Essential (primary) hypertension; F41.9 Anxiety disorder, unspecified; Z86.73 Personal history of transient ischemic attack (TIA), and cerebral infarction without residual deficits; Z86.61 Personal history of infections of the central nervous system; Z88.8 Allergy status to other drugs, medicaments and biological substances; Z91.030 Bee allergy status
CPT/HCPCS: 99284; 96374; 96375 ×2; 96361

== ENCOUNTER 2023-10-06 08:26 | Emergency (ER) | payer BC, SELFPAY ==
[2023-10-06 08:27] VITALS: BP 152/106
--- NOTE | 2023-10-06 08:38 | ED.GENMED ---
History of Present Illness
General
Chief Complaint: Allergic Reaction
Source: patient
Exam Limitations: none
Time Seen by Provider: 10/06/23 08:31
History of Present Illness
History of Present Illness:
See MDM
Past History
Past History
ED Past Medical History: HTN, Psychiatric (Anxiety) and Other (TIA, Headaches, Numbness in arms and legs. Meningitis, )
ED Past Surgical History: Orthopedic (Right finger repair) and Other (Hernia repair X 2, Pituitary resection)
Social History
Tobacco: Non-smoker
Alcohol: Occasional
Drug: None
Personal:
Living: with family
Employment: Employed
Family History
Family History: Other (Noncontributory)
Phy Exam
Physical Exam
Physical Exam:
See MDM
Course
Orders/Labs/Results
Orders:
Orders
10/06/23 08:37
Dexamethasone Pf [Decadron] 10 mg PO NOW STA
Famotidine [Pepcid] 40 mg PO NOW STA
10/06/23 10:24
Oxycodone [Roxicodone] 5 mg PO NOW STA
Vital Signs
Initial and Last Documented VS:
Initial Vital Signs
Temp Pulse Resp BP Pulse Ox
100 F 125 18 152/106 100
10/06/23 08:27 10/06/23 08:27 10/06/23 08:27 10/06/23 08:27 10/06/23 08:27
Last Documented Vital Signs
Temp Pulse Resp BP Pulse Ox
100 F 125 18 158/102 93
10/06/23 08:27 10/06/23 08:27 10/06/23 08:27 10/06/23 09:00 10/06/23 09:01
MDM/Problems Addressed
Differential Diagnosis Includes:
HPI and MDM Narrative:
58-year-old male presenting with concern for allergic reaction. Patient was riding his bike when he was stung by a bee on his left index finger. 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 He has an EpiPen but felt decent so
he did not take the EpiPen. He was stung approximately 20 to 30 minutes ago. He states his throat feels scratchy but denies trouble breathing. He is unsure if his throat sensation is related to his recent bike ride.
On exam, he is well-appearing and nontoxic. I did noted the sting on the left index finger. Will apply ice. There is no significant erythema noted around the bee sting. There is mild expected edema. Cap refill in his finger less than 2 seconds.
Posterior pharynx within normal limits. Patient appears to be in no acute distress and has no stridor. He did take Benadryl prior to arrival. Will add Decadron and Pepcid and continue to monitor
Physical exam
General: Well appearing and non-toxic
HEENT: protecting airway. Posterior pharynx clear
Neck: No stridor, supple
CV: No evidence of cyanosis
Resp: No accessory muscle use
Abd: Non-distended
Extremities: Bee sting noted to left index finger. The stinger is not visible. The finger is expectedly edematous. No significant erythema. Cap refill less than 2 seconds
Neuro: alert
Psych: Normal affect
Skin: Intact
Problems Addressed including Acute and Chronic Conditions affecting care:
1. Allergic reaction to bee sting
Acuity: acute
Prognosis: stable
Details: Patient already took Benadryl. No evidence of anaphylaxis at the moment. Will give Decadron and Pepcid and continue to monitor
2. [ ]
Acuity: acute
Prognosis: stable
Details:
3. [ ]
Acuity: acute
Prognosis: stable
Details:
4. [ ]
Acuity: acute
Prognosis: stable
Details:
5. [ ]
Acuity:
Prognosis:
Details:
Updates
9:20 AM patient remains well-appearing nontoxic
10:30 AM patient still without acute respiratory distress. Patient feels comfortable going home
Differential Diagnosis (but not limited to): Allergic reaction, anaphylaxis
Drug therapy (if applicable): OTC meds, please see d/c instruction regarding Rx drugs
Amount and/or Complexity of Data Reviewed
Clinical info obtained from: Patient
External data reviewed: N/A
Labs I independently reviewed (but not limited to): N/A
Radiology: N/A
Pulse Ox: not hypoxic
EKG independently reviewed: N/A
Fluoroscope Operator: N/A
Critical Care: N/A
Risk of Complication:
Social Determinants of health: Good social support
Discussed with other providers: N/A
Escalation of Care includes Admit/Obs: After being observed in the Emergency Department, pt stable for discharge.
Occasional wrong word or 'sound a like' substitutions may have occurred due to the inherent limitations of voice recognition software. Read the chart carefully and recognize, using context, where substitutions have occurred.
*Critical Care Note
Total Time (30-74mins, 75-104mins- exclusive of procedures): Not Applicable
ED Attending Note
-
Portions of this chart may have been created with voice recognition software.� Occasional wrong word or��sound alike� substitutions may have occurred due to the inherent limitations of voice recognition software.
Discharge Plan
Departure
Patient Disposition: Home (Routine Discharge)
Date of Disposition: 10/06/23
Time of Disposition: 10:24
Patient with high blood pressure during this ER visit?: Yes
Discharge Problem:
Allergic reaction
Instructions: Allergic Reaction ED, BLOOD PRESSURE
Prescriptions:
New
prednisone 20 mg tablet
40 mg PO DAILY Qty: 10 0RF
famotidine [Pepcid] 20 mg tablet
20 mg PO BID Qty: 10 0RF
No Action
nifedipine 30 MG tablet extended release 24hr
30 mg PO QPM
lisinopril 20 MG tablet
20 mg PO BID
alprazolam 0.25 MG tablet
0.25 mg PO BIDPRN PRN (Reason: anxiety)
Patient Comments:
08/03/2023: last filled 07/25/23, 20 tabs for 10 days from [id number]
zolpidem 10 MG tablet
10 mg PO HSPRN PRN (Reason: sleep)
Patient Comments:
08/03/2023: last filled 07/23/23, 15 tabs for 15 days from [id number]
buspirone 5 mg tablet
5 mg PO BID
hydrocodone-acetaminophen 5-325 mg tablet
1 tab PO BIDPRN PRN (Reason: moderate pain)
Patient Comments:
08/03/2023: last filled 06/30/23, 60 tabs for 30 days from [id number]
epinephrine [EpiPen 2-Howard] 0.3 mg/0.3 mL auto-injector
0.3 mg IM ONCE Qty: 2 0RF
prednisone 50 mg tablet
50 mg PO DAILY Qty: 1 0RF
Referrals:
Benja Chanel DO [Family Provider] -
Activity Restrictions/Additional Instructions:
Please return for any worsening symptoms.
You may return at any time if you have further concerns.
Please follow up with your doctor at the first available appointment, preferably this week.
Thank you for choosing [facility].
Interventions
Interventions:
*Risk Screen - Suicide Last Done: 10/06/23 08:49
*General Assessment Last Done: 10/06/23 08:49
*Neglect/Abuse Screening Last Done: 10/06/23 08:49
*ED COVID-19 Vaccine History Last Done: 10/06/23 08:49
ED- Cardiac Assessment Last Done: 10/06/23 08:51
ED- Pulmonary Assessment Last Done: 10/06/23 08:50
Discharge Date and Time
Print Language: PERUVIAN
[2023-10-06] MEDS: DECADRON 10 MG PO (08:43)
[2023-10-06] MEDS: PEPCID 40 MG PO (08:43)
[2023-10-06 08:48] VITALS: BP 155/96; BMI 32.6
[2023-10-06 09:00] VITALS: BP 158/102
[2023-10-06] MEDS: ROXICODONE 5 MG PO (11:01)
[2023-10-06 11:17] VITALS: BP 168/102
== END 2023-10-06 11:20 | disposition home or self-care (01) ==
LOC: EMR 08:26
PROVIDERS: EMERGENCY PHYSICIAN Student in an Organized Health Care Education/Training Program; FAMILY PHYSICIAN Internal Medicine
DX: T63.441A Toxic effect of venom of bees, accidental (unintentional), initial encounter (principal); R60.0 Localized edema; R09.89 Other specified symptoms and signs involving the circulatory and respiratory systems; R03.0 Elevated blood-pressure reading, without diagnosis of hypertension
CPT/HCPCS: 99283